=== PATIENT | female | born 1955 | race Caucasian/White ===

== ENCOUNTER 2021-02-21 14:24 | Outpatient (CLI) | payer BC ==
[2021-02-21] MEDS ORDERED: SYNTHROID0.05 MG/TA PO (14:38)
[2021-02-21 15:05] VITALS: BP 113/56; PULSE 81; TEMP 98.4
[2021-02-21 15:13] VITALS: BP 121/55; PULSE 80; TEMP 98.4
[2021-02-21 15:45] VITALS: BP 131/77; PULSE 76
[2021-02-21 16:15] VITALS: BP 123/67; PULSE 80
== END 2021-02-21 18:10 ==
LOC: EUO 14:24
DX: J02.9 Acute pharyngitis, unspecified (principal)
CPT/HCPCS: Q0244